=== PATIENT | female | born 1990 | race Caucasian/White ===

== ENCOUNTER → 2024-04-26 14:00 | Outpatient (BNV) | payer OTHER, SELFPAY | PROVIDERS: Visit Provider Psychiatry & Neurology Psychiatry | DX: F39 Unspecified mood [affective] disorder (principal); F43.12 Post-traumatic stress disorder, chronic; F91.8 Other conduct disorders; F63.89 Other impulse disorders; F41.9 Anxiety disorder, unspecified; F17.200 Nicotine dependence, unspecified, uncomplicated | CPT/HCPCS: 90832; 90834; 90837; 99213 ==

== ENCOUNTER 2024-05-02 08:19 | Outpatient (REF) | payer OTHER, SELFPAY ==
--- NOTE | 2024-05-02 08:26 | ECG_ITS ---
Test Reason : QTC Check F39, F41.3, 286.39 Blood Pressure : / mmHG Vent. Rate : 062 BPM Atrial Rate : 062 BPM P-R Int : 138 ms QRS Dur : 070 ms QT Int : 436 ms P-R-T Axes : 037 036 034 degrees QTc Int : 442 ms Normal sinus rhythm Normal ECG When compared with ECG of 14-MAR-2017 16:10, Vent. rate has decreased BY 43 BPM Referred By: Ember Negron Electronically Signed By:MINNIE DAWSON
[2024-05-02 09:12] LABS: MANUAL DIFF FLAG NO
[2024-05-02 09:36] LABS: Basophils Percent Auto 0.2 % (0-2); Eosinophils Absolute Auto 0.1 X10*3/uL (0.0-0.4); Eosinophils Percent Auto 1.7 % (0-4); Hematocrit 42.4 % (37.0-47.0); Hemoglobin 14.5 g/dl (12.0-16.0); Imm Gran Abs Auto 0.02 X10*3/uL (0.00-0.03); Imm Gran Pct Auto 0.3 % (0.0-0.4); Lymphocytes Absolute Auto 2.4 X10*3/uL (1.2-4.9); Lymphocytes Percent Auto 36.4 % (20-40); Mean Corpuscular HGB Conc 34.2 g/dl (31.0-35.0); Mean Corpuscular Volume 84.8 fL (80.0-98.0); Mean Platelet Volume 9.9 fL (9.4-12.3); Monocytes Absolute Auto 0.5 X10*3/uL (0.1-1.2); Monocytes Percent Auto 6.8 % (2-11); Neutrophils Absolute Auto 3.6 x10*3/uL (2.0-8.3); Neutrophils Percent Auto 54.6 % (45-73); Platelet Count 185 X10*3/uL (160-400); Red Cell Distribution Width 11.9 % (11.0-16.0); White Blood Count 6.6 X10*3/uL (4.8-10.8)
[2024-05-02 10:12] LABS: Erythrocyte Sedimentation Rate 2 MM/HR (0-20)
[2024-05-02 10:13] LABS: Parathyroid Hormone Intact 51.5 pg/mL (8.7-77.1)
[2024-05-02 10:28] LABS: Alanine Aminotransferase 15 U/L (0-31); Albumin Level 4.4 g/dL (3.5-5.0); Alkaline Phosphatase 53 U/L (39-117); Anion Gap 10 (12-20); Aspartate Amino Transferase 19 U/L (5-31); Bilirubin Total 0.6 mg/dL (0.0-1.0); Blood Urea Nitrogen 10 mg/dL (9-16); Calcium 9.1 mg/dL (8.4-10.2); Carbon Dioxide 23 mmol/L (22-29); Chloride 110 mmol/L (96-108); Cholesterol 139 mg/dL (<200); Estimated Glomerular Filt Rate > 60; Ferritin 61 ng/mL (10-122); Free T4 (Free Thyroxine) 0.98 ng/dL (0.71-1.85); Glucose Fasting 86 mg/dL (60-99); HDL Cholesterol 43 mg/dL (>40); Iron 177 mcg/dL (30-160); LDL Cholesterol Calculated 84 mg/dL (<100); Percent Iron Saturation 57 % (15-50); Phosphorus 3.1 mg/dL (2.7-4.5); Potassium 4.1 mmol/L (3.3-5.1); Sodium 139 mmol/L (135-145); Thyroid Stimulating Hormone 0.73 uIU/mL (0.32-4.0); Total Iron Binding Capacity 313 mcg/dL (228-428); Total Protein 7.6 g/dL (6.5-8.0); Triglycerides 61 mg/dL (<150); Unsaturated Iron Binding 136 ug/dL
[2024-05-02 10:37] LABS: Syphilis Screen Nonreactive (Nonreactive)
[2024-05-02 10:59] LABS: Folate 12.3 ng/mL (> or = 4.0); Vitamin B12 212 pg/mL (200-900)
[2024-05-02 11:28] LABS: Estimated Average Glucose 94 mg/dL; Hemoglobin A1c % 4.9 % (<6.0)
[2024-05-02 12:46] LABS: Rheumatoid Factor < 13.0 IU/mL (<15.0)
[2024-05-04 02:54] LABS: Triiodothyronine T3 Total 116 ng/dL (76-181)
[2024-05-04 04:22] LABS: Triiodothyronine T3 Free 3.4 pg/mL (2.3-4.2)
[2024-05-07 06:33] LABS: Vitamin B1 14 nmol/L (8-30)
[2024-05-07 16:43] LABS: Vitamin D 25-OH, D2 <4 ng/mL; Vitamin D 25-OH, D3 13 ng/mL; Vitamin D 25-OH, Total 13 ng/mL (30-100)
[2024-05-08 07:18] LABS: Anti Nuclear Antibody Screen POSITIVE (NEGATIVE); Anti Nuclear Antibody Titer 1:40 titer
[2024-05-16 16:18] LABS: Triiodothyronine T3 Reverse 13 ng/dL (8-25)
== END 2024-05-02 08:20 | disposition home or self-care (01) ==
LOC: HO.LAB 08:19
PROVIDERS: Visit Provider Psychiatry & Neurology Psychiatry
DX: F39 Unspecified mood [affective] disorder (principal); F41.3 Other mixed anxiety disorders; Z86.39 Personal history of other endocrine, nutritional and metabolic disease
CPT/HCPCS: 36415; 80053; 80061; 82306; 82607; 82728; 82746; 83036; 83540; 83735; 83789; 83970; 84100; 84425; 84439; 84443; 84480; 84481; 84482; 85025; 85652; 86038; 86039; 86140; 86431; 86780; 93005

== ENCOUNTER 2024-05-15 13:00 | Outpatient (RCR) | payer OTHER, SELFPAY ==
[2024-04-25 11:52] VITALS: BP 113/76; PULSE 56; TEMP 36.7
[2024-04-25 11:55] VITALS: BMI 28.7
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
--- NOTE | 2024-04-25 14:58 | HO.PHP ---
Senior Planning Analyst met with pt at roughly 1:30pm when pt was seen sitting outside of group, crying. Pt expressed frustration about coming to [facility], worried if she could do it because she felt very sensitive to others and also felt she needed to be home preparing for her children. Pt spoke at length about her routine for her 3 children with high medical and developmental need. Expressed feelings of exhaustion, reflected on her past struggles up until now, stated she lacked support and felt she could not keep going like this. Pt stated she would not act on her fleeting thoughts of SI but felt overwhelmed by her responsibilities so at times wishes she were resting peacefully with the others in the [place] from her home. Pt reiterated she would never act on those thoughts because she loves her children and does not want them to go into the system and grow up as she did. Pt provided support and encouragement to return to [facility] to address her mental health and increase coping skills and supports, explored with sports writer how she may benefit from [facility], appearing less guarded and encouraged after some time and agreed to return tomorrow and give PHP a try. Pt encouraged to seek out staff support if she finds groups to be too difficult and to take short breaks as needed if she felt overcome with emotion. Pt appreciative for staff support, discussed her plans for tonight for self-care since she had a very emotional day, stated she wanted to go get food for herself after [facility] then maybe go to [place] to decompress before she goes home, since her mother is available to stay with her children until 6pm. Pt reported she is safe. Identified her best friend as a support and her mother. Denied current SI. Pt also informed sports writer it takes 2 hours for her to get to [facility] by bus and walking so she will be arriving at [facility] by 9:20 to 9:30 daily until PT1 is setup.
--- NOTE | 2024-04-26 15:37 | HO.PHP ---
Client's case has been opened and reviewed in team.
--- NOTE | 2024-04-26 16:12 | HO.PHP ---
PHP staff member faxed over a referral for med management and OP therapy to [facility] for Willy. PHP staff member is awaiting a call back with scheduled appointment dates and times.
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
--- NOTE | 2024-05-01 11:17 | HO.PHPPROGNO ---
Subjective Subjective Date of Service: 05/01/24 Reason For Visit: anxiety Interim History: I'm sensitive about everything..everything makes me either cry or explode . Reports anger issues which is a serious problem . She jokes that family/kids /friends/ know when to get out of my way . Feels a little improvement with addition of Abilify but mood is still changing minute to minute, still very impulsive and reactive. She is off the Buspar, says she noted. Anxiety is sometimes good, sometimes bad . Spontaneously jumps around in conversation but is able to hold the thread of questions and answers appropriately. Easily distracted, but also tendency to hyperfocus on emotionally-provoking topics or stories and who has been annoying her in groups. She is has moments of lability and tearfulness. Sleep disrupted, appetite and energy variable. Transient hopelessness. Denies SI, HI, AH, VH. Medication Compliance: Yes Side effects from medications: No Attending Groups: Yes Review of Systems Acute medical concerns: No Mental Status Exam Mental Status Exam Narrative: Alert, oriented, in no acute distress. Eye contact intermittent. Mood labile, affect bright, irritable edge without notable lability. Speech normal. Thought process linear, coherent. Thought content related to stressors, no hopelessness noted, denies SI, intention, urge or plan. Denies any aggressive ideation or HI. No paranoia or delusional content elicited. No evidence of psychosis. Insight and judgment - fair but adequate Diagnostics Vital Signs (24Hr): BMI result Body Mass Index 28.7 Assessment & Plan Assessment & Plan (1) Other specified episodic mood disorder: Status: Acute Code(s): F39 - Unspecified mood [affective] disorder (2) Chronic post-traumatic stress disorder (PTSD): Status: Acute Code(s): F43.12 - Post-traumatic stress disorder, chronic (3) Other specified disruptive, impulse control, and conduct disorder: Status: Acute Code(s): F91.8 - Other conduct disorders; F63.89 - Other impulse disorders Assessment and Plan: developmental hx and clinical presentation strongly suggestive of ADHD, as well +FH ADHD (4) Anxiety disorder: Status: Acute Code(s): F41.9 - Anxiety disorder, unspecified Plan pick up truck driver/start clonidine 0.1 mg qhs sleep (will try taking at 7pm tonight to see if would be helpful during day for anxiety or too sedating) titrate Abilify toward 5 mg (2 mg?tonight, 2.5 tomorrow and 3.5 mg on , if tolerated increase to 5 mg by weekend) off Buspar continue escitalopram 20 mg qd (will plan to lower escitalopram to 15 mg qd by Tuesday if tolerating Abilify) consider Wellbutrin SR if able to come down more from SSRI, if not consider Concerta continue baclofen 10 mg TID prn pain continue hydroxyzine 25-50 mg qhs PRN anxiety, sleep continue sumatriptan prn migraine Routine lab work slip given EKG, routine for baseline QTc for medication considerations UDS as indicated Continue to monitor Patient educated on: diagnosis, medication risk/benefits and substance abuse Informed Consent: understands Reason for contiued partial hosp. stay Substantial Risk for: inability to function, rapid decompensation and med/psych decompensation Certification I certify that partial hospital treatment is medically necessary due to the symptoms and problems resulting from the patient's mental illness and the failure to treat the patient at the partial hospital level of care would likely result in the patient requiring inpatient psychiatric care which could not be prevented at a less intensive level of care. Total time managing care of this patient today _30___ minutes. Discharge Plan Discharge Attending provider: Ember Negron Additional Instructions: Willy's OP therapy intake appointment is scheduled for May 22, 2024 at 10 AM at with Gildardo Ayon at [address] [place] [address] in [place], [place]. Willy's med management appointment is scheduled for June 18, 2024 at 11 AM with Chioma Santo via telehealth. Medications: New aripiprazole 2 mg tablet 2 mg PO BEDTIME Qty: 14 0RF aripiprazole 5 mg tablet 5 mg PO BEDTIME Qty: 30 0RF lisdexamfetamine 10 mg capsule 10 mg PO QAM Qty: 30 0RF Rx Instructions: Partial Fill upon patient request. oxcarbazepine 150 mg tablet 150 mg PO BID Qty: 30 0RF guanfacine 1 mg tablet extended release 24 hr 1 mg PO QPM Qty: 30 0RF ergocalciferol (vitamin D2) [Vitamin D2] 1,250 mcg (50,000 unit) capsule 1,250 mcg PO QWEEK Qty: 14 0RF Continued baclofen 10 mg tablet 10 mg PO TID PRN (Reason: pain) Rx Instructions: Last filled 02/2024 hydroxyzine pamoate 25 mg capsule 25 - 50 mg PO BEDTIME PRN (Reason: anxiety) Discontinued sumatriptan succinate 50 mg tablet See Rx Instructions .ROUTE .COMPLEX Rx Instructions: TAKE ONE TABLET BY MOUTH ONCE EVERY DAY NEEDED FOR MIGRAINE HEADACHE. MAY REPEAT DOSE AFTER 2 HOURS UP TO A MAX OF 200MG IN 24 HOURS. LAST FILLED DECEMBER 2023 #18. buspirone 10 mg tablet 10 mg PO TID escitalopram oxalate 20 mg tablet 20 mg PO DAILY Stand Alone Forms: Patient Portal Discharge page Print Language: Uzbek
--- NOTE | 2024-05-02 09:39 | PC.NURSE ---
Willy reports that she completed her blood work this morning and she had been fasting since 11pm last night. When she got to the program she felt lightheaded and tremulous and dropped her coffee on the kitchen floor at [facility]. Stated she felt like she was having a panic attack. She stated the lab took many vials of blood. She drank some apple juice and is eating a muffin. Stated she is feeling better, denied lightheadedness, no tremulousness. VS BP 124/85 P 64. She is currently in group.
--- NOTE | 2024-05-02 15:44 | HO.PHP ---
At roughly 2:00pm pt became emotional when [facility] transportation did not show up. Pt called [facility] but was not able to get through and the map nancy for [facility] car service was not working. Pt became discouraged and tearful, sat with internal communications writer for roughly 40 minutes venting and crying about her situation, expressed frustrations. Made statements of not wanting to do this anymore but when asked is she was experiencing suicidal thoughts or a plan, pt denied SI and denied a plan. Pt stated she feels she can not keep doing this regarding her situation caring for her 3 kids with special needs, but then adds she would without them. Pt was overwhelmed with emotion but was able to calm after some time, decline wanting or needing a crisis evaluation. Stated she will not hurt herself and she was going to go home to sort out her [facility] for tomorow. Pt was provided a Lyft home, by [facility]. Contracted with internal communications writer that she is safe and will return tomorrow. At 3:45 om, internal communications writer called Willy at home to follow up, pt stated she was currently on the phone with [facility] on the other line and stated she left a message for Lula for the morning regarding the [facility] needing her number. Pt asked to call internal communications writer in the morning if anything changes. Pt reports she is safe. Mood and tone was calm. Appreciative for staff support.
--- NOTE | 2024-05-03 14:56 | HO.PHP ---
[facility] staff member followed up with Willy due to her appearing as though she had a challenging day around emotional regulation. Willy and PHP staff member talked about the stressors that are coming from her children. [facility] staff member explored with Willy if she can see if her IHT team or DCF team can help get her support with the children. Willy mentioned that her DCF worker said that if they have to take one of the children, them they will have to take all of them because she is unable to care for them. Willy did express that she spoke to a group member yesterday around how to file for a DIAL SCREW ASSEMBLER. Willy did note that the IHT team have her son going to [facility]. [facility] staff member encouraged her to wait to see what the outcome is of [facility] first before exploring other options of care for her son. [facility] staff member asked Willy if her son has ever had a neuropsych. Willy disclosed that she would like for that and explored resources. [facility] staff member provided her with learning solutions and [employer]. Willy was receptive. [facility] staff member assessed safety, in which Willy reported no concerns around SI, plan or intent and will be in attendance to program tomorrow.
--- NOTE | 2024-05-07 07:22 | HO.PHP ---
PHP staff member received a Voicemail from Grant through [facility] with the aftercare appointment for Willy. Willy's OP therapy intake appointment is scheduled for May 22, 2024 at 10 AM at with Gildardo Ayon at [address] [place] [address] in [place], [place]. Willy's med management appointment is scheduled for June 18, 2024 at 11 AM with Chioma Santo via telehealth.
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
--- NOTE | 2024-05-10 18:25 | P.PNPSP_ITS ---
Subjective Subjective Date of Service: 05/10/24 Reason For Visit: anxiety Interim History: Patient seen for follow up. Today carries a heavy odor of marijuana/cigarette smoke. When approached on the issue she spontaneously dumps the content of her handbag on my desk which wreaked of smoke, denies using any recently citing DCF involvement but says she otherwise would be as it helps with anxiety, irritability and sleep. This provider declined patient to examine the contents of patient's bag. She remained pleasant and undefensive in our interaction (demonstrating carton cigarettes, a number of them were half-used) but was evasive about last use it's been a while . She continues on Abilify which remains at 2 mg and has been eager to increase the dose but did not get the refill so has not been able to increase the dose without running out. She also says she got impatient and stopped the medications we had been planning to cut down on namely the Lexapro. She denies any withdrawal sx. She is also got off the hydroxyzine and sumatriptan neither she felt had been helpful. She continues on Abilify at 2 mg which helps her calm down for a couple hours but then wears off and still has trouble sleeping especially because she may need to get up to help son with his diabetes but it's difficult to fall back sleep. She is taking one clonidine at night which is helpful to relax but doesnt last long. Her HR tends on the lower side (50-60s) so likely not much room to increase. WIll plan to more aggressively treat mood reactivity and impulsivity, with addition of oxcarbazepine once Abilify is at 5 mg to better target OCD, PTSD as well as mood. Will plan to treat ADHD with Latrice sparks, her children also have ADHD and are doing well on guanfacine and stimulant (Vyvanse and Adderall respectively) Medication Compliance: Yes (aside from rushing taper off SSRI which was felt to be contributing to irritability) Side effects from medications: No Attending Groups: Yes Mental Status Exam Mental Status Exam Narrative: Alert, oriented, in no acute distress. Eye contact intermittent. Mood labile, affect bright, irritable edge without notable lability. Speech normal. Thought process linear, coherent. Thought content related to stressors, no hopelessness noted, denies SI, intention, urge or plan. Denies any aggressive ideation or HI. No paranoia or delusional content elicited. No evidence of psychosis. Insight and judgment - fair but adequate Diagnostics Vital Signs (24Hr): BMI result Body Mass Index 28.7 Assessment & Plan Assessment & Plan (1) Other specified episodic mood disorder: Status: Acute Code(s): F39 - Unspecified mood [affective] disorder (2) Other specified disruptive, impulse control, and conduct disorder: Status: Acute Code(s): F91.8 - Other conduct disorders; F63.89 - Other impulse disorders Assessment and Plan: developmental hx and clinical presentation strongly suggestive of ADHD, as well +FH ADHD (3) Anxiety disorder: Status: Acute Code(s): F41.9 - Anxiety disorder, unspecified (4) Chronic post-traumatic stress disorder (PTSD): Status: Acute Code(s): F43.12 - Post-traumatic stress disorder, chronic (5) History of OCD (obsessive compulsive disorder): Status: Acute Code(s): Z86.59 - Personal history of other mental and behavioral disorders Plan increase Abilify 5 mg (split 2.5 mg BID) over weekend will start oxcarbazepine 150 mg BID hold clonidine 0.1 mg start guanfacine ER 1 mg qhs (may put on BID with stimulant in AM) will order Vyvanse (to see if covered or needs PA, but dont start) continue baclofen 10 mg TID prn pain start vitamin D2 50,000 IU qweekly for vit D deficiency patient stopped the Lexapro, denies any withdrawal sx discontinued: Buspar, Lexapro, hydroxyzine, sumatriptan Routine lab work findings reviewed -TFTs normalized as well as h/o Fe-defic anemia resolved. ESTEVAN+ but low end 1:40 EKG, routine reviewed from 05/02, NSR QTc: 442 ms UDS as indicated Continue to monitor Patient educated on: diagnosis, medication risk/benefits and substance abuse Informed Consent: understands Reason for contiued partial hosp. stay Substantial Risk for: rapid decompensation and med/psych decompensation Certification I certify that partial hospital treatment is medically necessary due to the symptoms and problems resulting from the patient's mental illness and the failure to treat the patient at the partial hospital level of care would likely result in the patient requiring inpatient psychiatric care which could not be prevented at a less intensive level of care. Total time managing care of this patient today _40___ minutes. Discharge Plan Discharge Attending provider: Ember Negron Additional Instructions: [facility] therapy intake appointment is scheduled for May 22, 2024 at 10 AM at with Gildardo Ayon at [address] [place] [address] in [place], [place]. [facility] med management appointment is scheduled for June 18, 2024 at 11 AM with Chioma Santo via telehealth. Medications: New aripiprazole 2 mg tablet 2 mg PO BEDTIME Qty: 14 0RF aripiprazole 5 mg tablet 5 mg PO BEDTIME Qty: 30 0RF lisdexamfetamine 10 mg capsule 10 mg PO QAM Qty: 30 0RF Rx Instructions: Partial Fill upon patient request. oxcarbazepine 150 mg tablet 150 mg PO BID Qty: 30 0RF guanfacine 1 mg tablet extended release 24 hr 1 mg PO QPM Qty: 30 0RF ergocalciferol (vitamin D2) [Vitamin D2] 1,250 mcg (50,000 unit) capsule 1,250 mcg PO QWEEK Qty: 14 0RF Continued baclofen 10 mg tablet 10 mg PO TID PRN (Reason: pain) Rx Instructions: Last filled 02/2024 hydroxyzine pamoate 25 mg capsule 25 - 50 mg PO BEDTIME PRN (Reason: anxiety) Discontinued sumatriptan succinate 50 mg tablet See Rx Instructions .ROUTE .COMPLEX Rx Instructions: TAKE ONE TABLET BY MOUTH ONCE EVERY DAY NEEDED FOR MIGRAINE HEADACHE. MAY REPEAT DOSE AFTER 2 HOURS UP TO A MAX OF 200MG IN 24 HOURS. LAST FILLED DECEMBER 2023 #18. buspirone 10 mg tablet 10 mg PO TID escitalopram oxalate 20 mg tablet 20 mg PO DAILY Stand Alone Forms: Patient Portal Discharge page Print Language: Korean
[2024-05-11 09:12] VITALS: BP 96/73; PULSE 72
--- NOTE | 2024-05-11 09:15 | PC.NURSE ---
Patient reports she had an, episode today where she felt dizzy, sweating, nausea, confused, increased heart rate, increased breathing, tingling body parts for 10-15 minutes this morning prior to coming to the program. Stated she gets these episodes periodically. ?panic attack. Educated patient on square breathing. BP 96/73 P 72. She stated she feels better currently, denied any of the above symptoms.
--- NOTE | 2024-05-15 22:07 | P.PNPSP_ITS ---
Subjective Subjective Date of Service: 05/15/24 Reason For Visit: anxiety Interim History: Patient seen for follow-up, anticipating discharge at the end of program today.? doing better. Just got knee problems I got to deal with . Feels the program was helpful. Reports no acute issues or concerns. Medication compliant, medications well- tolerated. Denies any adverse effects.? Mood is stable.? Denies any hopelessness or SI. Denies thoughts of harming self or others at this time. Denies any aggressive ideation or HI. Denies any paranoia or AH or VH. Sleep, appetite, energy stable. Medication Compliance: Yes Side effects from medications: No Attending Groups: Yes Review of Systems Acute medical concerns: No Mental Status Exam Mental Status Exam Narrative: Alert, oriented, in no acute distress. Calm, cooperative. Mood stable, affect appropriate. Speech normal. Thought process linear, coherent. No evidence of thought order, dariel or psychosis. Future-oriented, denies any SI or HI. Insight and judgment - fair but adequate Diagnostics Vital Signs (24Hr): BMI result Body Mass Index 28.7 Assessment & Plan Assessment & Plan (1) Other specified episodic mood disorder: Status: Acute Code(s): F39 - Unspecified mood [affective] disorder (2) Chronic post-traumatic stress disorder (PTSD): Status: Acute Code(s): F43.12 - Post-traumatic stress disorder, chronic (3) Other specified disruptive, impulse control, and conduct disorder: Status: Acute Code(s): F91.8 - Other conduct disorders; F63.89 - Other impulse disorders (4) Anxiety disorder: Status: Acute Code(s): F41.9 - Anxiety disorder, unspecified (5) Nicotine addiction: Status: Acute Code(s): F17.200 - Nicotine dependence, unspecified, uncomplicated Plan Discharge from [facility] continue medications: Abilify 5 mg qd Trileptal titrated to 300 mg BID Concerta 18 mg qam (3x/wk) - Vyvanse not covered by insurance guanfacine ER 1mg qd-bid vitamin D2 54517 IU qweekly baclofen 10 mg TID prn pain Discontinued: sumatriptan, hydroxyzine, buspirone, escitalopram, Routine lab work reviewed with patient (pt requested copy of lab work which was given to her) Refills sent to pharmacy Will defer further medication management to outpatient provider Safety plan reviewed Discharge diagnoses, treatment course, discharge plan have been reviewed with patient (including medication regime, medication management, potential side effects) as well as treatment rationale were also revisited *Discharge paperwork signed and given to patient, copy sent for scanning to [facility] Patient educated on: diagnosis, medication risk/benefits and substance abuse Informed Consent: understands Reason for contiued partial hosp. stay Substantial Risk for: stable for discharge Certification I certify that partial hospital treatment is medically necessary due to the symptoms and problems resulting from the patient's mental illness and the failure to treat the patient at the partial hospital level of care would likely result in the patient requiring inpatient psychiatric care which could not be prevented at a less intensive level of care. Total time managing care of this patient today __30__ minutes. Discharge Plan Discharge Attending provider: Ember Negron Additional Instructions: [facility] therapy intake appointment is scheduled for May 22, 2024 at 10 AM at with Gildardo Ayon at [address] [place] [address] in [place], [place]. [facility] med management appointment is scheduled for June 18, 2024 at 11 AM with Chioma Santo via telehealth. Medications: New aripiprazole 5 mg tablet 5 mg PO BEDTIME Qty: 30 0RF guanfacine 1 mg tablet extended release 24 hr 1 mg PO QPM Qty: 30 0RF ergocalciferol (vitamin D2) [Vitamin D2] 1,250 mcg (50,000 unit) capsule 1,250 mcg PO QWEEK Qty: 14 0RF methylphenidate HCl [Concerta] 18 mg tablet extended release 24hr 18 mg PO QAM Qty: 14 0RF Rx Instructions: Partial Fill upon patient request. oxcarbazepine 300 mg tablet 300 mg PO BID Qty: 60 0RF Continued baclofen 10 mg tablet 10 mg PO TID PRN (Reason: pain) Rx Instructions: Last filled 02/2024 hydroxyzine pamoate 25 mg capsule 25 - 50 mg PO BEDTIME PRN (Reason: anxiety) Discontinued sumatriptan succinate 50 mg tablet See Rx Instructions .ROUTE .COMPLEX Rx Instructions: TAKE ONE TABLET BY MOUTH ONCE EVERY DAY NEEDED FOR MIGRAINE HEADACHE. MAY REPEAT DOSE AFTER 2 HOURS UP TO A MAX OF 200MG IN 24 HOURS. LAST FILLED DECEMBER 2023 #18. buspirone 10 mg tablet 10 mg PO TID escitalopram oxalate 20 mg tablet 20 mg PO DAILY Stand Alone Forms: Patient Portal Discharge page Patient Education: ADHD in Adults (ED), ADHD in Adults (DC), ADHD in Adults (GEN), Post Traumatic Stress Disorder (DC) Print Language: Azeri
== END 2024-05-15 23:59 | disposition home or self-care (01) ==
LOC: HO.PHPA 13:00
PROVIDERS: Visit Provider Psychiatry & Neurology Psychiatry
DX: F39 Unspecified mood [affective] disorder (principal); F43.12 Post-traumatic stress disorder, chronic; F91.8 Other conduct disorders; F63.89 Other impulse disorders; F41.9 Anxiety disorder, unspecified; F17.200 Nicotine dependence, unspecified, uncomplicated; Z86.59 Personal history of other mental and behavioral disorders; Z79.899 Other long term (current) drug therapy
CPT/HCPCS: 90791; 90853